=== PATIENT | female | born 2000 | race Two or more races ===

== ENCOUNTER 2023-09-03 20:11 | Emergency (ER) | payer SELFPAY ==
[~2023-09-03] VITALS: Ht 167.6 cm; Wt 57.0 kg
[2023-09-03 20:18] VITALS: O2SAT 100
[2023-09-03] MEDS: IBUPROFEN 400MG TABLET PO ONE (20:59)
[2023-09-03] MEDS: ACETAMINOPHEN 325MG TABLET PO ONE (20:59)
[2023-09-03 21:10] VITALS: BP 110/70; PULSE 80; RESP 15; TEMP 97.9
== END 2023-09-03 21:43 | disposition home or self-care (01) ==
LOC: ER 20:11
DX: S00.83XA Contusion of other part of head, initial encounter (principal); F41.9 Anxiety disorder, unspecified; F31.9 Bipolar disorder, unspecified; F19.90 Other psychoactive substance use, unspecified, uncomplicated; Y08.89XA Assault by other specified means, initial encounter; Y93.89 Activity, other specified; Y92.89 Other specified places as the place of occurrence of the external cause; Y99.8 Other external cause status
CPT/HCPCS: 99283

== ENCOUNTER 2024-07-31 10:54 | Emergency (ER) | payer MEDICAID ==
[~2024-07-31] VITALS: Ht 160 cm; Wt 49.0 kg
[2024-07-31 11:09] VITALS: O2SAT 100
[2024-07-31] MEDS: IBUPROFEN 600MG TABLET PO ONE (12:34)
[2024-07-31] MEDS: BACITRACIN ZINC OINT UDPKT TOP ONE (12:35)
[2024-07-31 12:37] VITALS: BP 119/70; PULSE 74; RESP 16; TEMP 37; O2SAT 100
== END 2024-07-31 12:41 | disposition home or self-care (01) ==
LOC: ER 10:54
DX: S60.511A Abrasion of right hand, initial encounter (principal); M79.18 Myalgia, other site; F31.9 Bipolar disorder, unspecified; F41.9 Anxiety disorder, unspecified; V43.52XA Car driver injured in collision with other type car in traffic accident, initial encounter; Y93.89 Activity, other specified; Y92.89 Other specified places as the place of occurrence of the external cause; Y99.8 Other external cause status
CPT/HCPCS: 99283